=== PATIENT | female | born 1965 | race Asian ===

== ENCOUNTER 2021-06-09 08:44 | Emergency (ER) | payer OTHER ==
[2021-06-09 11:15] LABS: CORONAVIRUS COVID-19 NAA NEGATIVE (NEGATIVE)
[2021-06-09] MEDS ORDERED: Albuterol 0.083% 2.5 MG/3 ML Neb Soln NEB ONE (11:39)
--- NOTE | 2021-06-09 11:42 | EDM.PDOC ---
ED HPI GENERAL MEDICAL PROBLEM - General Chief Complaint: Respiratory Problem Stated Complaint: COUGH, CHEST PAIN Time Seen by Provider: 06/09/21 10:00 Source of Information: Reports: Patient, Other (pt speaks engish but has trouble with underastanding. ) History Limitations: Reports: Language Barrier - History of Present Illness INITIAL COMMENTS - FREE TEXT/NARRATIVE: pt arrived stating she has had a cough, her chest feels tight. She is worried that she could have covid. She is covid immunized. Onset: Gradual Duration: Hour(s): Location: Reports: Chest Associated Symptoms: Reports: Chest Pain, Cough, Other ( chest feels tight. ) - Related Data Allergies Allergy/AdvReac Type Severity Reaction Status Date / Time No Known Allergies Allergy Verified 06/09/21 09:00 Home Meds: Home Meds NK [No Known Home Meds] 06/09/21 [History] Past Medical History - Past Health History Medical/Surgical History: Denies Medical/Surgical History Social & Family History - Tobacco Use Tobacco Use Status *Q: Never Tobacco User ED ROS GENERAL - Review of Systems Review Of Systems: See Below Constitutional: Reports: No Symptoms HEENT: Reports: No Symptoms Respiratory: Reports: Other ( chest feels tight and she is having some discomfort. ) Cardiovascular: Reports: Chest Pain, Other ( slight sob. ) Endocrine: Reports: No Symptoms GI/Abdominal: Reports: No Symptoms : Reports: No Symptoms Musculoskeletal: Reports: No Symptoms Skin: Reports: No Symptoms ED EXAM, GENERAL - Physical Exam Exam: See Below Free Text/Narrative:: pt arrived with chest tightness and slight discomfort. She is worried that she could have covid. She did habve the vaccine. Exam Limited By: No Limitations General Appearance: Alert, Anxious Ears: Normal TMs Nose: Normal Inspection Throat/Mouth: Normal Inspection Head: Atraumatic Respiratory/Chest: No Respiratory Distress Cardiovascular: Regular Rate, Rhythm GI/Abdominal: Soft, Non-Tender (Female) Exam: Deferred Rectal (Female) Exam: Deferred Back Exam: Normal Inspection Extremities: Normal Inspection Neurological: Alert, Oriented, Normal Cognition #1 Interpretation Rhythm: NSR [place]: Normal Comparison: NA - No Prior EKG EKG Interpretation Comments: no acute changes. Course - Vital Signs Last Recorded V/S: Last Vital Signs Temp 37.1 C 06/09/21 09:06 Pulse 70 07/31/21 09:06 Resp 14 06/09/21 09:06 BP 107/73 06/09/21 09:06 Pulse Ox 99 06/09/21 09:06 - Orders/Labs/Meds Orders: Active Orders 24 hr Category Date Time Status EKG Documentation Completion [RC] ASDIRECTED Care 06/09/21 11:08 Active RT Aerosol Therapy [RC] ASDIRECTED Care 06/09/21 11:40 Active Chest 2V [CR] Stat Exams 06/09/21 10:25 Taken Isolation [COMM] Stat Oth 06/09/21 10:25 Ordered EKG 12 Lead [EK] Routine Ther 06/09/21 11:08 Ordered Labs: Laboratory Tests 06/09/21 06/09/21 Range/Units 10:24 10:35 WBC 5.9 (4.5-11.0) K/uL RBC 4.58 (3.30-5.50) M/uL Hgb 12.7 (12.0-15.0) g/dL Hct 39.1 (36.0-48.0) % MCV 85 (80-98) fL MCH 28 (27-31) pg MCHC 33 (32-36) % Plt Count 295 (150-400) K/uL Neut % (Auto) 52.7 (36-66) % Lymph % (Auto) 35.7 (24-44) % [place] % (Auto) 8.6 H (2-6) % Eos % (Auto) 2.2 (2-4) % Baso % (Auto) 0.8 (0-1) % Influenza Type A RNA Negative (NEGATIVE) RSV RNA ([facility]AT) Negative (NEGATIVE) Influenza Type B RNA Negative (NEGATIVE) SARS-CoV-2 RNA ([facility]) Negative (NEGATIVE) Meds: Medications Discontinued Medications Generic Name Dose Route Start Last Admin Trade Name Freq PRN Reason Stop Dose Admin Albuterol 2.5 mg 06/09/21 11:39 06/09/21 11:56 Albuterol 0.083% 2.5 Mg/3 Ml Neb Soln NEB 06/09/21 11:40 2.5 mg ONETIME ONE Administration - Re-Assessments/Exams Free Text/Narrative Re-Assessment/Exam: 06/09/21 12:18 wbc was 5900, her chest xray was clear. A alb neb was given and she did feel better after that. Departure - Departure Time of Disposition: 11:38 Disposition: Home, Self-Care 01 Condition: Fair Clinical Impression: Systemic viral illness - Discharge Information Referrals: Vickie Potter PA-C [Primary Care Provider] - Forms: ED Department Discharge Care Plan Goals: tylenol and motrin for pain, encourage deep breathing, push fluids, Pt had a chest xray that was clear, white blood count was not elevated, covid test was neg. Sepsis Event Note (ED) - Evaluation Sepsis Screening Result: No Definite Risk - Focused Exam Vital Signs: Vital Signs Temp Pulse Resp BP Pulse Ox 06/09/21 09:06 37.1 C 70 14 107/73 99 - My Orders Last 24 Hours: My Active Orders 06/09/21 10:25 Chest 2V [CR] Stat Isolation [COMM] Stat 06/09/21 11:08 EKG Documentation Completion [RC] ASDIRECTED EKG 12 Lead [EK] Routine 06/09/21 11:40 RT Aerosol Therapy [RC] ASDIRECTED - Assessment/Plan Last 24 Hours: My Active Orders 06/09/21 10:25 Chest 2V [CR] Stat Isolation [COMM] Stat 06/09/21 11:08 EKG Documentation Completion [RC] ASDIRECTED EKG 12 Lead [EK] Routine 06/09/21 11:40 RT Aerosol Therapy [RC] ASDIRECTED
--- NOTE | 2021-06-11 09:28 | CR ---
CHEST: 2 view CLINICAL HISTORY:Tightness COMPARISON:None FINDINGS: The heart size, pulmonary vascularity and hilar structures are normal. No infiltrate effusion or pneumothorax is seen. IMPRESSION: No acute cardiopulmonary process.
== END 2021-06-09 12:23 | disposition home or self-care (01) ==
LOC: EDBD 08:44 → JP.ED 08:44
DX: B34.9 Viral infection, unspecified (principal); Z20.822 Contact with and (suspected) exposure to COVID-19
CPT/HCPCS: 0241U; 36415; 71046; 85025; 93005; 99285